=== PATIENT | female | born 1990 | race Caucasian/White ===

== ENCOUNTER 2019-02-28 22:19 | Emergency (ER) | payer OTHER ==
[2019-02-28 22:38] VITALS: BP 117/74; PULSE 70; TEMP 98.2; BMI 26.6
--- NOTE | 2019-02-28 23:12 | PDOC ---
History of Present Illness - General Chief Complaint: Respiratory Stated Complaint: CHEST PAIN/COUGHING Time Seen by Provider: 02/28/19 22:56 - History of Present Illness Initial Comments: 02/28/19 23:11 28 yo F with h/o GERD, ADPKD who p/w cough. Patient reports acute onset of dry non productive cough x 5 days and muffled voice/hoarsness. Cough worse with supine positioning. Denies postrpadnial symptoms. Endorses worsening retrosernal chest discomfort, and posterior back pain. Also endorses headache, worse with coughing/valsalva. Reports "sore throat" x 1 day, week ago, now resolved. Robitussin x 1 day. Reports h/o asthma in childhood. No sick contacts. Tums for GERD symptoms. Reports sour taste in mouth. Not on RENETTA-I. Patient denies vision change, palpitations, sneezing, itching eyes, wheezing, orthopena, PND, leg swelling/pain, N/V, F,C, SOB, drooling, dysphagia, urinary complaints, hematuria, BPR, abdominal pain, diarrhea, constipation, lightheadedness, weakness, sensory changes. PMHx: as noted above. Does not f/w GI. ROS: as noted SHx: Denies Etoh, IVDA, tobacco use Allergies: NKDA Past History - Past Medical History Allergies/Adverse Reactions: Allergies Allergy/AdvReac Type Severity Reaction Status Date / Time No Known Allergies Allergy Verified 02/28/19 22:38 Home Medications: Ambulatory Orders Albuterol Sulfate Inhaler - [Ventolin Hfa Inhaler -] 1 - 2 inh PO Q4H #1 inhaler 02/28/19 Dextromethorphan HBr [Wal-Tussin Cough] 15 mg PO PRN #10 capsule MDD 1 tab 02/28 Methylprednisolone [Medrol Dose Macario] 4 mg PO ASDIR #21 tablet 02/28/19 Ranitidine [Zantac -] 150 mg PO BID #30 tablet MDD 2 tab 02/28/19 COPD: No - Suicide/Smoking/Psychosocial Hx Smoking History: Unknown if ever smoked Have you smoked in the past 12 months: No Information on smoking cessation initiated: No Hx Alcohol Use: No Drug/Substance Use Hx: No Review of Systems - Review of Systems Comments:: 02/28/19 23:12 GENERAL/CONSTITUTIONAL: No fever or chills. No weakness. HEAD, EYES, EARS, NOSE AND THROAT: No change in vision. No ear pain or discharge. No sore throat. CARDIOVASCULAR: + cough, chest pain .No shortness of breath RESPIRATORY: + cough. No wheezing, or hemoptysis. GASTROINTESTINAL: No nausea, vomiting, diarrhea or constipation. GENITOURINARY: No dysuria, frequency, or change in urination. MUSCULOSKELETAL: No joint or muscle swelling or pain. No neck or back pain. SKIN: No rash NEUROLOGIC: No vertigo, loss of consciousness, or change in strength/sensation. ENDOCRINE: No increased thirst. No abnormal weight change HEMATOLOGIC/LYMPHATIC: No anemia, easy bleeding, or history of blood clots. ALLERGIC/IMMUNOLOGIC: No hives or skin allergy. *Physical Exam - Vital Signs Last Vital Signs Temp Pulse Resp BP Pulse Ox 98.2 F 70 16 117/74 100 02/28/19 22:36 02/28/19 22:36 02/28/19 22:36 02/28/19 22:36 02/28/19 22:36 - Physical Exam Comments: 02/28/19 23:12 GENERAL: Awake, alert, and fully oriented, in no acute distress HEAD: No signs of trauma, normocephalic, atraumatic EYES: PERRLA, EOMI, sclera anicteric, conjunctiva clear ENT: Auricles normal inspection, hearing grossly normal, nares patent, oropharynx clear without exudates. Moist mucosa NECK: Normal ROM, supple, no lymphadenopathy, JVD, or masses LUNGS: No distress, speaks full sentences, clear to auscultation bilaterally HEART: Regular rate and rhythm, normal S1 and S2, no murmurs, rubs or gallops, peripheral pulses normal and equal bilaterally. ABDOMEN: Soft, nontender, normoactive bowel sounds. No guarding, no rebound. No masses EXTREMITIES : Normal inspection, Normal range of motion, no edema. No clubbing or cyanosis. NEUROLOGICAL: Cranial nerves II through XII grossly intact. Normal speech, normal gait, no focal sensorimotor deficits SKIN: Warm, Dry, normal turgor, no rashes or lesions noted Medical Decision Making - Medical Decision Making 02/28/19 23:30 28 yo F with h/o GERD, ADPKD who p/w acute onset of dry non productive cough and muffled/hoarse voice x 5 days, worse with supine positioning. Vitals wnl, AF , A&Ox3. Physical exam unremarkable. Absent wheezing, stridor, conjunctiva injection. Patient Denies sneezing, rhinnorhea, itching eyes, wheezing, orthopena, leg swelling/pain, N/V, F,C, SOB, drooling, dysphagia, urinary complaints,abdominal pain, diarrhea, constipation, lightheadedness, weakness, sensory changes. Possible GERD etiology, given cough worse with supine position/ laryngeopharyngeal reflux and complaint of "sour taste in mouth." Dysphonia likely 2/2 protracted coughng, vs. viral prodrome. However will consider laryngitis. R/o PNA. Will consider asthma, postnasal drip/allergic rhinitis, bronchitis. Advised to f/u PMD. ED Course: CXR Gloria OlearyntAngelika weeksb 03/01/19 01:22 Dextromethorphan, Albuterol, Ranitidine, Medrol Dose Macario sent to pharmacy Patient preg neg Breath sound clear BL Cough improved 03/01/19 01:34 CXR unremarkable Patient stable for d/c with return precautions. Advised to f/u PMD. *DC/Admit/Observation/Transfer Diagnosis at time of Disposition: Cough - Discharge Dispostion Condition at time of disposition: Stable Decision to Admit order: No - Prescriptions Prescriptions: Albuterol Sulfate Inhaler - [Ventolin Hfa Inhaler -] 1 - 2 inh PO Q4H #1 inhaler Dextromethorphan HBr [Wal-Tussin Cough] 15 mg PO PRN #10 capsule MDD 1 tab Methylprednisolone [Medrol Dose Macario] 4 mg PO ASDIR #21 tablet Ranitidine [Zantac -] 150 mg PO BID #30 tablet MDD 2 tab - Referrals - Patient Instructions Printed Discharge Instructions: DI for Cough -- Adult, DI for Laryngitis Additional Instructions: Please return to the emergency department with any new or worsening symptoms or concerns. Please follow up with your primary care physician within 72 hours. Take Zantac twice a day. Take albuterol, dextromethrophan as needed. Take Medrol daily. - Post Discharge Activity
[2019-02-28] MEDS ORDERED: RANITIDINE HCL 150 MG TABLET (FP) PO ONE (23:25)
[2019-02-28] MEDS ORDERED: MAG HYDROX/AL HYDROX/SIMETH 30 ML UNIT-DOSE CUP PO ONE (23:25)
[2019-02-28] MEDS ORDERED: ALBUTEROL SO4 2.5/IPRATROPIUM 0.5 INH SOL 3 ML VIAL.NEB. NEB ONE ×2 (23:25→23:49)
[2019-02-28] MEDS ORDERED: MAG HYDROX/AL HYDROX/SIMETH 30 ML UNIT-DOSE CUP ONE (23:50)
[2019-02-28] MEDS ORDERED: RANITIDINE HCL 150 MG TABLET (FP) ONE (23:50)
--- NOTE | 2019-03-01 00:02 | PDOC ---
Attending Attestation - Resident Resident Name: Ajit Fan - ED Attending Attestation I have performed the following: I have examined & evaluated the patient, The case was reviewed & discussed with the resident, I agree w/resident's findings & plan, Exceptions are as noted - HPI HPI: 03/01/19 00:01 28 yo female with 5 days of cough and horse voice. she has no respiratory distress - Physicial Exam PE: 03/01/19 00:02 28 yo female p/w cough that is worse at night time when she is supine head ncat oropharynx sl erythematous but no exudates,uvula midline eyes jaime eomi neck supple lungs cta b/l cvs [id number] abd nontender extremities no edema, no rash skin warm and dry neuro axox3,ambulatory,no focal neuro deficits - Medical Decision Making 03/01/19 00:05 imp; persistent cough worse at night,chest wall pain. Diif includes cough variant asthma,uri,asthma,acid reflux plan albuterol,PPI ,cough suppressant PCP follow up
--- NOTE | 2019-03-01 11:39 | EKG ---
Test Reason : Blood Pressure : / mmHG Vent. Rate : 061 BPM Atrial Rate : 061 BPM P-R Int : 116 ms QRS Dur : 084 ms QT Int : 420 ms P-R-T Axes : 077 034 055 degrees QTc Int : 422 ms NORMAL SINUS RHYTHM POSSIBLE LEFT ATRIAL ENLARGEMENT BORDERLINE ECG NO PREVIOUS ECGS AVAILABLE Confirmed by GLORIA VAZQUEZ, ANISA ([id number]) on 03/01/2019 11:39:06 AM Referred By: Confirmed By:ANISA CASTRO MD
== END 2019-03-01 01:55 | disposition home or self-care (01) ==
LOC: JER 22:19
PROC: 3E0F7GC Introduction of Other Therapeutic Substance into Respiratory Tract, Via Natural or Artificial Opening (ICD-10-PCS; principal; 2019-02-28)
DX: J04.0 Acute laryngitis (principal)
CPT/HCPCS: 71046-TC-FY; 84703; 93005; 93010; 94640; 99282-25